=== PATIENT | female | born 1955 | race Caucasian/White ===

== ENCOUNTER 2017-01-13 17:39 | Emergency (ER) | payer BC, OTHER ==
--- NOTE | 2017-01-13 17:54 | Emergency Department Record ---
History of Present Illness - General Chief Complaint: Chest Pain Stated Complaint: CHEST PRESSURE Time Seen by Provider: 01/13/17 17:52 Source: Patient Mode of Arrival: Ambulatory Limitations: No limitations - History of Present Illness Initial Comments: The patient has been having sharp CP with nausea mildly for months and it got a lot worse about 2 hours ago. The pain is like a pressure and is L sided and there is a sharp component that radiates to the back at times. She has had mild PETRONA, sweating and nausea with it. The patient has multiple cardiac risk factors including HTN, obesity, high Cholesterol and an 80 year tobacco use hx. MD Complaint: Chest pain Onset/Timin -: Hour(s) Onset: During rest Pain Location: Left chest, Right chest Pain Radiation: Back Severity: Severe Severity scale (1-10): 9 Quality: Sharp, Other Consistency: Constant Improves With: Nothing Worsens With: Nothing Anginal Symptoms: Diaphoresis, Dyspnea, Nausea - Related Data Home Medications Medication Instructions Recorded Confirmed Last Taken Aspirin [Aspirin EC] 81 mg PO DAILY 11/28/14 01/13/17 2 Days Ago Estrogens, Conjugated [Premarin] 1.25 mg PO DAILY 11/28/14 01/13/17 01/13/17 Lisinopril/Hydrochlorothiazide 1 each PO DAILY 11/28/14 01/13/17 01/13/17 [Zestoretic 20-25 mg Tablet] Pantoprazole Sodium [Protonix] 40 mg PO DAILY 11/28/14 01/13/17 01/13/17 Potassium Chloride [Klor-Con] 10 meq PO DAILY 11/28/14 01/13/17 01/13/17 Zolpidem Tartrate [Zolpidem 12.5 mg PO DAILY 11/28/14 01/13/17 2 Days Ago Tartrate ER] Cyclobenzaprine HCl [Flexeril] 10 mg PO QHS 04/07/15 01/13/17 Unknown Hydrocodone/Acetaminophen [[place] 1 tab PO Q8H PRN 04/07/15 01/13/17 Unknown 10mg/325mg] Methylphenidate HCl 20 mg PO TID 04/07/15 01/13/17 01/13/17 Pravastatin Sodium [Pravachol] 40 mg PO DAILY 04/07/15 01/13/17 01/13/17 Cholecalciferol (Vitamin D3) 5,000 unit PO DAILY tab 02/01/16 01/13/17 01/13/17 [Vitamin D3] [place]-3 Acid Ethyl Esters [Lovaza] 1 gm PO BID cap 02/01/16 01/13/17 01/13/17 Docusate Sodium [Stool Softener] 100 mg PO DAILY 01/13/17 01/13/17 01/13/17 Allergies Allergy/AdvReac Type Severity Reaction Status Date / Time oxycodone terephthalate AdvReac NAUSEA AND Verified 01/13/17 17:48 [From Percodan] VOMITING Travel Screening - Travel/Exposure Within Last 30 Days Have you traveled within the last 30 days?: No Review of Systems Constitutional: Denies: Chills, Fever Eyes: Denies: Eye discharge ENT: Denies: Congestion Respiratory: Denies: Cough Cardiovascular: Reports: Chest pain, Dyspnea on exertion. Denies: Palpitations , Syncope Endocrine: Denies: Fatigue Gastrointestinal: Denies: Diarrhea, Nausea, Vomiting Genitourinary: Denies: Dysuria Musculoskeletal: Denies: Back pain Skin: Denies: Bruising Past Medical History - SOCIAL HISTORY Smoking Status: Current every day smoker Alcohol Use: None Drug Use: None - RESPIRATORY Hx Respiratory Disorders: No Hx Sleep Apnea: Yes Hx of CPAP: Yes - CARDIOVASCULAR Hx Cardio Disorders: Yes Hx Cardiac Cath: Yes (2005) Hx Chest Pain: Yes Hx Hypertension: Yes - NEURO Hx Neuro Disorders: No - GI Hx GI Disorders: Yes Hx Abdominal Pain: Yes Hx Reflux: Yes Hx Irritable Bowel: Yes Hx Nausea/Vomiting: Yes Hx Ulcer: Yes Hx of Polyps: Yes - Hx Genitourinary Disorders: No - ENDOCRINE Hx Endocrine Disorders: No Comment:: Pt states on Thyroid med due to fatigue - MUSCULOSKELETAL Hx Musculoskeletal Disorders: Yes Hx Arthritis: Yes Hx Back Injury: Yes (1992-work injury) - PSYCH Hx Psych Problems: No - HEMATOLOGY/ONCOLOGY Hx Hematology/Oncology Disorders: No Family Medical History Any Significant Family History?: Yes Hx Cancer: Father Hx Heart Disease: Father, Grandparents Physical Exam - General General Appearance: Alert, Oriented x3, Cooperative, No acute distress - Head Head exam: Atraumatic, Normocephalic, Normal inspection - Eye Eye exam: Normal appearance, PERRL - ENT Throat exam: Normal inspection. negative: Tonsillar erythema, Tonsillar exudate - Neck Neck exam: Normal inspection, Full ROM. negative: Tenderness - Respiratory Respiratory exam: Normal lung sounds bilaterally. negative: Respiratory distress - Cardiovascular Cardiovascular Exam: Regular rate, Normal rhythm, Normal heart sounds - GI/Abdominal GI/Abdominal exam: Soft, Normal bowel sounds. negative: Tenderness - Extremities Extremities exam: Normal inspection, Full ROM, Normal capillary refill, Other ( radial pulses are equal bilaterally.). negative: Tenderness - Neurological Neurological exam: Alert, Normal gait. negative: Abnormal gait, Motor sensory deficit Course Vital Signs 01/13/17 17:41 Temperature 97.9 F Pulse Rate 95 H Respiratory 20 Rate Blood Pressure 145/98 Pulse Ox 98 - Reevaluation(s) Reevaluation #1: The patient is doing better at this time. Her L chest pressure has almost resolved and her L scapula pain is improved but still present. There is no PETRONA, sweating or nausea. The patient's BP is much improved at this time and she is very comfortably presently. 01/13/17 18:28 Reevaluation #2: The patient is doing a little better. The 2nd EKG is slightly improved with very subtle ST depression in the inferior leads only. The anterior lateral ST depression that was present on the 1st EKG is now improved. 01/13/17 18:45 Reevaluation #3: The patient is doing better and appears very comfortably. She still has mild chest heaviness but no specific pain and no severe back pain. Her BP and HR are very stable and normal at this time. Due to the way the patient describes the pain and due to her multiple risk factors I strongly believe the patient is having cardiac ischemia. I discussed this with the patient and also the plan for a probably heart catheterization. Due to that the patient stated she would like to go to [facility] on the [facility] service. I then did discuss the case with Dr. Gutiérrez from [facility] and he does accept the patient to the hospital there. 01/13/17 19:07 Reevaluation #4: The patient is doing better at this time. Her chest pressure is improving but she is having significant pain around her L scapula. Her BP's are equal in both arms but she does have a hx of HTN. I did order a D-dimer and if positive may order a chest CT to R/O dissection. I did discuss the case again with Dr. Zhao and he would like a 3rd EKG. He is aware the patient is not pain free but she is very comfortable with a BP of 109/65 and HR of 90. 01/13/17 19:36 01/13/17 19:48 Reevaluation #5: The 3rd EKG is unchanged and does not demonstrate any significant cardiac dz. The patient is very comfortable presently and her pressure in her chest is almost all gone presently. Her back pain is almost gone also and she is smiling and laughing with her family. I did discuss the issues with the Indeterminate D- dimer with Dr. Gutiérrez but at this time strongly doubt an aortic dissection due to the pain being almost all resolved, the BP improved and her BP's equal in both arms. Dr. Maria is aware of the issues and will re-evaluate the patient at [facility] with his bellperson. 01/13/17 19:56 01/13/17 20:05 Medical Decision Making - Data Complexity MDM Data: X-Ray Ordered and/or Reviewed, EKG Ordered and/or Reviewed - Lab Data Result diagrams: 01/13/17 18:05 01/13/17 18:05 - EKG Data -: EKG Interpreted by Me (NSR, subtle ST depression V3-6.) - Radiology Data Radiology results: Report reviewed (CXR: Neg.) Disposition Disposition: Transfer Disposition: Acute Care Hospital Transfer Transfer To: [facility] Reason For Transfer: Unstable Angina Accepting Physician: Brock Time Discussed w/Accepting Physician: 19:10 Condition: (2) Stable Forms: Patient Portal Access Time of Disposition: 19:10
[2017-01-13] MEDS ORDERED: ASPIRIN 325 MG TABLET PO ONE (17:57)
[2017-01-13] MEDS ORDERED: ONDANSETRON HCL IV 4 MG/2 ML VIAL IVP ONE (18:00)
[2017-01-13] MEDS: NITROGLYCERIN 0.4MG SL TABLET #25 BTL SL PRN ×2 (18:08→18:45)
[2017-01-13 18:14] LABS: BASO % 0.8 % (0-6); EOS % 0.9 % (0-6); GRAN % 66.6 % (47-80); HEMATOCRIT 45.4 % (35.0-47.0); HEMOGLOBIN 15.5 gm/dl (11.6-16.0); MEAN CORPUSCULAR HGB CONC 34.1 g/dl (32-36); MEAN PLATELET VOLUME 11.5 fl (7.4-10.4); MONO % 8.7 % (0-9); PLATELET COUNT 306 K/uL (130-400); RED BLOOD COUNT 5.16 M/uL (3.80-5.40); RED CELL DISTRIBUTION WIDTH 14.3 % (11.5-14.5); WHITE BLOOD COUNT W/O DIFF 16.2 K/uL (4.2-12.2)
[2017-01-13] MEDS ORDERED: MORPHINE SULFATE 5 MG/ML PFS IVP ONE ×2 (18:16→18:41)
[2017-01-13 18:30] LABS: BLOOD UREA NITROGEN 16 mg/dL (7-17); CREATINE PHOSPHOKINASE 76 U/L (30-135); CREATININE 0.7 mg/dL (0.52-1.04); EST GLOMERULAR FILTRATION RATE > 60 ml/min; GLUCOSE,RANDOM 108 mg/dL (70-110); INR 1.01; PARTIAL THROMBOPLASTIN TIME 24.3 SECONDS (24.5-39.1); PROTHROMBIN TIME (PATIENT) 11.4 SECONDS (9.5-12.1)
[2017-01-13 18:42] LABS: CKMB 0.7 ug/L (0-6); TROPONIN I < 0.012 ng/mL (0.00-0.034)
[2017-01-13] MEDS ORDERED: HEPARIN SODIUM 1000 UNIT/1 ML 10ML VIAL IVP ONE (18:50)
[2017-01-13] MEDS ORDERED: HEPARIN SODIUM/D5W 25,000 UNITS in DEXTROSE 5 % IN WATER 1 BAG IV SCH ×2 (19:00)
[2017-01-13] MEDS ORDERED: NITROGLYCERIN/D5W 50 MG in DEXTROSE 5 % IN WATER 1 BAG IV SCH ×2 (19:00)
[2017-01-13] MEDS ORDERED: HYDROMORPHONE HCL 1 MG/ML CPJ IVP ONE (19:03)
--- NOTE | 2017-01-15 13:35 | Emergency Department Record ---
History of Present Illness - General Chief Complaint: Chest Pain Stated Complaint: CHEST PRESSURE Time Seen by Provider: 01/13/17 17:52 Source: Patient Mode of Arrival: Ambulatory Limitations: No limitations - History of Present Illness Onset/Timin -: Hour(s) Onset: During rest Pain Location: Left chest, Right chest Pain Radiation: Back Severity: Severe Severity scale (1-10): 9 Quality: Sharp, Other Consistency: Constant Improves With: Nothing Worsens With: Nothing Anginal Symptoms: Diaphoresis, Dyspnea, Nausea - Related Data Home Medications Medication Instructions Recorded Confirmed Last Taken Aspirin [Aspirin EC] 81 mg PO DAILY 11/28/14 01/13/17 2 Days Ago Estrogens, Conjugated [Premarin] 1.25 mg PO DAILY 11/28/14 01/13/17 01/13/17 Lisinopril/Hydrochlorothiazide 1 each PO DAILY 11/28/14 01/13/17 01/13/17 [Zestoretic 20-25 mg Tablet] Pantoprazole Sodium [Protonix] 40 mg PO DAILY 11/28/14 01/13/17 01/13/17 Potassium Chloride [Klor-Con] 10 meq PO DAILY 11/28/14 01/13/17 01/13/17 Zolpidem Tartrate [Zolpidem 12.5 mg PO DAILY 11/28/14 01/13/17 2 Days Ago Tartrate ER] Cyclobenzaprine HCl [Flexeril] 10 mg PO QHS 04/07/15 01/13/17 Unknown Hydrocodone/Acetaminophen [[place] 1 tab PO Q8H PRN 04/07/15 01/13/17 Unknown 10mg/325mg] Methylphenidate HCl 20 mg PO TID 04/07/15 01/13/17 01/13/17 Pravastatin Sodium [Pravachol] 40 mg PO DAILY 04/07/15 01/13/17 01/13/17 Cholecalciferol (Vitamin D3) 5,000 unit PO DAILY tab 02/01/16 01/13/17 01/13/17 [Vitamin D3] [place]-3 Acid Ethyl Esters [Lovaza] 1 gm PO BID cap 02/01/16 01/13/17 01/13/17 Docusate Sodium [Stool Softener] 100 mg PO DAILY 01/13/17 01/13/17 01/13/17 Allergies Allergy/AdvReac Type Severity Reaction Status Date / Time oxycodone terephthalate AdvReac NAUSEA AND Verified 01/13/17 17:48 [From Percodan] VOMITING Travel Screening - Travel/Exposure Within Last 30 Days Have you traveled within the last 30 days?: No Review of Systems Constitutional: Denies: Chills, Fever Eyes: Denies: Eye discharge ENT: Denies: Congestion Respiratory: Denies: Cough Cardiovascular: Reports: Chest pain, Dyspnea on exertion. Denies: Palpitations , Syncope Endocrine: Denies: Fatigue Gastrointestinal: Denies: Diarrhea, Nausea, Vomiting Genitourinary: Denies: Dysuria Musculoskeletal: Denies: Back pain Skin: Denies: Bruising Past Medical History - SOCIAL HISTORY Smoking Status: Current every day smoker Alcohol Use: None Drug Use: None - RESPIRATORY Hx Respiratory Disorders: No Hx Sleep Apnea: Yes Hx of CPAP: Yes - CARDIOVASCULAR Hx Cardio Disorders: Yes Hx Cardiac Cath: Yes (2005) Hx Chest Pain: Yes Hx Hypertension: Yes - NEURO Hx Neuro Disorders: No - GI Hx GI Disorders: Yes Hx Abdominal Pain: Yes Hx Reflux: Yes Hx Irritable Bowel: Yes Hx Nausea/Vomiting: Yes Hx Ulcer: Yes Hx of Polyps: Yes - Hx Genitourinary Disorders: No - ENDOCRINE Hx Endocrine Disorders: No Comment:: Pt states on Thyroid med due to fatigue - MUSCULOSKELETAL Hx Musculoskeletal Disorders: Yes Hx Arthritis: Yes Hx Back Injury: Yes (1992-work injury) - PSYCH Hx Psych Problems: No - HEMATOLOGY/ONCOLOGY Hx Hematology/Oncology Disorders: No Family Medical History Any Significant Family History?: Yes Hx Cancer: Father Hx Heart Disease: Father, Grandparents Physical Exam - General Limitations: No limitations Course Vital Signs 01/13/17 01/13/17 01/13/17 17:41 18:11 18:25 Temperature 97.9 F Pulse Rate 95 H Pulse Rate [ 93 H 97 H Marketing Editor ] Respiratory 20 20 22 Rate Blood Pressure 145/98 Blood Pressure 137/56 116/69 [Left Arm] Blood Pressure [Right Arm] Pulse Ox 98 97 96 01/13/17 01/13/17 01/13/17 18:47 18:48 19:26 Temperature Pulse Rate Pulse Rate [ 99 H 98 H 102 H Marketing Editor ] Respiratory 20 18 Rate Blood Pressure Blood Pressure 149/67 111/70 [Left Arm] Blood Pressure 143/77 143/77 [Right Arm] Pulse Ox 96 97 01/13/17 01/13/17 19:45 20:14 Temperature Pulse Rate Pulse Rate [ 93 H 89 Marketing Editor ] Respiratory 19 17 Rate Blood Pressure Blood Pressure 109/65 123/66 [Left Arm] Blood Pressure [Right Arm] Pulse Ox 97 Medical Decision Making - Lab Data Result diagrams: 01/13/17 18:05 01/13/17 18:05 Lab Results 01/13/17 01/13/17 01/13/17 Range/Units 18:05 18:05 18:05 WBC 16.2 H (4.2-12.2) K/uL RBC 5.16 (3.80-5.40) M/uL Hgb 15.5 (11.6-16.0) gm/dl Hct 45.4 (35.0-47.0) % MCV 88.0 (81-97) fl MCH 30.0 (27-33) pg MCHC 34.1 (32-36) g/dl RDW 14.3 (11.5-14.5) % Plt Count 306 (130-400) K/uL MPV 11.5 H (7.4-10.4) fl Gran % 66.6 (47-80) % Lymphocytes % 23.0 (16-45) % Monocytes % 8.7 (0-9) % Eosinophils % 0.9 (0-6) % Basophils % 0.8 (0-6) % PT 11.4 (9.5-12.1) SECONDS INR 1.01 PTT 24.30 L (24.5-39.1) SECONDS D-Dimer (0-0.59) mg/L FEU Sodium 139 (136-145) mmol/L Potassium 3.8 (3.5-5.1) mmol/L Chloride 96 L (98-107) mmol/L Carbon Dioxide 20.0 L (22-30) mmol/L Anion Gap 23.0 H (7-16) BUN 16 (7-17) mg/dL Creatinine 0.7 (0.52-1.04) mg/dL Estimated GFR > 60 ml/min Random Glucose 108 (70-110) mg/dL Calcium 8.3 L (8.5-10.1) mg/dL Creatine Kinase 76 (30-135) U/L CK-MB (CK-2) 0.7 (0-6) ug/L Troponin I < 0.012 (0.00-0.034) ng/mL 01/13/17 Range/Units 18:05 WBC (4.2-12.2) K/uL RBC (3.80-5.40) M/uL Hgb (11.6-16.0) gm/dl Hct (35.0-47.0) % MCV (81-97) fl MCH (27-33) pg MCHC (32-36) g/dl RDW (11.5-14.5) % Plt Count (130-400) K/uL MPV (7.4-10.4) fl Gran % (47-80) % Lymphocytes % (16-45) % Monocytes % (0-9) % Eosinophils % (0-6) % Basophils % (0-6) % PT (9.5-12.1) SECONDS INR PTT (24.5-39.1) SECONDS D-Dimer 0.54 (0-0.59) mg/L FEU Sodium (136-145) mmol/L Potassium (3.5-5.1) mmol/L Chloride (98-107) mmol/L Carbon Dioxide (22-30) mmol/L Anion Gap (7-16) BUN (7-17) mg/dL Creatinine (0.52-1.04) mg/dL Estimated GFR ml/min Random Glucose (70-110) mg/dL Calcium (8.5-10.1) mg/dL Creatine Kinase (30-135) U/L CK-MB (CK-2) (0-6) ug/L Troponin I (0.00-0.034) ng/mL Disposition Disposition: Transfer Clinical Impression: Unstable Angina Pectoris Disposition: Acute Care Hospital Transfer Transfer To: [facility] Reason For Transfer: Cardiology. Accepting Physician: Pavel. Time Discussed w/Accepting Physician: 13:35 Condition: (2) Stable Forms: Patient Portal Access Time of Disposition: 13:35
--- NOTE | 2017-01-19 13:35 | RADIOLOGY REPORT ---
EXAM: PORTABLE CHEST HISTORY: CHEST PAIN. TECHNIQUE: A single mobile upright view of the chest was obtained. Comparison: Two view chest radiographic examination dated 12/01/16. FINDINGS: The heart is not grossly enlarged and the pulmonary vasculature is nondilated. No confluent air space opacity is seen nor is there costophrenic angle blunting or pneumothorax. A surgical anchor is again noted in the proximal right humerus. There are degenerative changes of the visualized spine and shoulder girdles. IMPRESSION: NO RADIOGRAPHIC EVIDENCE OF ACUTE CARDIOPULMONARY DISEASE WITHOUT SIGNIFICANT CHANGE SINCE 12/01/16. JOB NUMBER: [id number] [facility]
== END 2017-01-13 20:41 | disposition short-term general hospital (02) ==
LOC: ER 17:39
DX: I20.0 Unstable angina (principal); R11.0 Nausea; R06.00 Dyspnea, unspecified; I10 Essential (primary) hypertension; F17.210 Nicotine dependence, cigarettes, uncomplicated
CPT/HCPCS: 99285 ×2; 96365; 96366; 96375; 82550; 85025; 85730; 85610; 82553; 84484; 80048; 85379; 71010; 93005; 93010; J2405; J1170; J2270

== ENCOUNTER 2017-07-15 07:30 | Day surgery (SDC) | payer BC, OTHER ==
[2017-07-15] MEDS ORDERED: HYDROCODONE/APAP 7.5/325MG TABLET PO ONE (13:16)
[2017-07-15] MEDS ORDERED: BUPIVACAINE 0.5% W/EPI MPF 30 ML VIAL IVP ONE (13:18)
[2017-07-15] MEDS ORDERED: LIDOCAINE 1% W/EPI 1:200,000 MPF 30ML SQ ONE (13:18)
[2017-07-15] MEDS ORDERED: DEXAMETHASONE PRESERVATIVE FREE 10MG/ML VIAL IV ONE (13:18)
[2017-07-15] MEDS ORDERED: LIDOCAINE 2% MDV (20MG/ML) 20ML VIAL IV ONE (14:00)
[2017-07-15] MEDS ORDERED: *PACU ONLY* KETAMINE HCL 10 MG/ML (20ML) VIAL IV ONE (14:00)
[2017-07-15] MEDS ORDERED: MIDAZOLAM HCL 2MG/2ML VIAL IV ONE (14:00)
[2017-07-15] MEDS ORDERED: PROPOFOL 10 MG/ML VIAL IV ONE (14:00)
[2017-07-15] MEDS ORDERED: ALFENTANIL HCL 500 MCG/1ML, 2ML AMP IV ONE (14:00)
--- NOTE | 2017-07-15 15:16 | Operative Note - [place] ---
DATE OF SURGERY: 07/15/17 PREOPERATIVE DIAGNOSIS: CERVICAL SPONDYLOSIS WITHOUT MYELOPATHY, ICD-10 CODE = M47.812. OPERATION: RADIOFREQUENCY RHIZOTOMY LEFT CERVICAL FACETS 3-4, 4-5, 5-6, AND 6-7. SURGEON: GUERRERO VELAZQUEZ D.O. ANESTHESIA: LOCAL SEDATION. ANESTHESIA PROVIDER: CHRISTINA SANTOS CRNA. INDICATION: This patient presents with primary neck pain. Examination shows diffuse tenderness in the cervical spine. Range of motion does cause pain to the neck with extension, all left. Diagnostics show multiple levels of spondylosis. A facet series resulted in 75-90% pain control. Due to the failure of therapy and the success of facets, she presents for rhizotomy for more long- term relief. PROCEDURE: Intravenous line, vital sign monitoring, IV sedation, prepped, draped, sterile technique. Consistent with the diagnostic facet series, facets at 3-4, 4-5, 5-6, and 6-7 on the left were marked, infiltrated, and a 20-gauge rhizotomy cannula positioned. Stimulation trials conducted. Rhizotomy burn performed. Local with anti-inflammatory into the sites. Topical antibiotics. Sterile dressing applied. We will monitor and evaluate. cc: Dr. Rader JOB NUMBER: [id number] [facility]TDD
== END 2017-07-15 10:15 | disposition home or self-care (01) ==
LOC: SUR 07:30
PROVIDERS: ATTEND Pain Medicine Interventional Pain Medicine
DX: M47.812 Spondylosis without myelopathy or radiculopathy, cervical region (principal); E78.00 Pure hypercholesterolemia, unspecified; I10 Essential (primary) hypertension
CPT/HCPCS: 64633; 64634 ×3; 01936; J1100

== ENCOUNTER 2018-09-08 07:08 | Day surgery (SDC) | payer OTHER, BC ==
[2018-09-08] MEDS ORDERED: FENTANYL PF 100MCG/2ML VIAL IV ONE (07:09)
[2018-09-08] MEDS ORDERED: PROPOFOL 10 MG/ML VIAL IV ONE (07:09)
[2018-09-08] MEDS ORDERED: DEXAMETHASONE PRESERVATIVE FREE 10MG/ML VIAL IV ONE (07:09)
[2018-09-08] MEDS ORDERED: BUPIVACAINE 0.5% W/EPI MPF 30 ML VIAL IVP ONE (07:09)
[2018-09-08] MEDS ORDERED: LIDOCAINE 1% W/EPI 1:200,000 MPF 30ML SQ ONE (07:09)
[2018-09-08] MEDS ORDERED: LIDOCAINE 2% MDV (20MG/ML) 20ML VIAL IV ONE (07:09)
[2018-09-08] MEDS ORDERED: MIDAZOLAM HCL 2MG/2ML VIAL IV ONE (07:09)
--- NOTE | 2018-09-08 16:27 | Operative Note ---
DATE OF SURGERY: 09/08/18 PREOPERATIVE DIAGNOSIS: CERVICAL SPONDYLOSIS WITHOUT MYELOPATHY, ICD-10 CODE = M47.812, LEFT. OPERATION: RADIOFREQUENCY RHIZOTOMY LEFT CERVICAL FACETS 3-4, 4-5, 5-6, AND 6-7. SURGEON: GUERRERO VELAZQUEZ D.O. ANESTHESIA: LOCAL SEDATION. ANESTHESIA PROVIDER: Zoila INDICATION: This patient presents with left-sided neck and shoulder pain. Diagnostics show extensive multiple levels of spondylosis. A facet series 75% plus percent pain control. Due to the failure of therapy and success of facet series, the patient presents for rhizotomy for more long-term relief. PROCEDURE: Intravenous line, vital sign monitoring, IV sedation, prepped, draped, sterile technique. Under imaging, cervical facets left at 3-4, 4-5, 5-6 , and 6-7 marked and infiltrated. A 22-gauge rhizotomy cannula positioned. Stimulation trials conducted. Rhizotomy burn performed. Local with anti- inflammatory into the sites. Topical antibiotics. Sterile dressing applied. We will monitor and evaluate. cc: Dr. Avalos JOB NUMBER: [id number] MTDD
== END 2018-09-08 10:00 | disposition home or self-care (01) ==
LOC: SUR 07:08
PROVIDERS: ATTEND Pain Medicine Interventional Pain Medicine
DX: M47.812 Spondylosis without myelopathy or radiculopathy, cervical region (principal); I10 Essential (primary) hypertension; E78.00 Pure hypercholesterolemia, unspecified

== ENCOUNTER 2018-10-31 13:46 | Emergency (ER) | payer OTHER, BC ==
--- NOTE | 2018-10-31 14:02 | Emergency Department Record ---
History of Present Illness - General Chief Complaint: Back Pain/Injury Stated Complaint: BACK PAIN Time Seen by Provider: 10/31/18 13:59 Source: Patient, Family Mode of Arrival: Ambulatory Limitations: No limitations - History of Present Illness Initial Comments: 63 yo female presents with right sided back discomfort. The onset was Thursday. She does not recall a specific injury. No rash. No fever. No dysuria. No radiation to the leg or abdomen. No weakness. No nausea, vomiting, or diarrhea. She has pain with movement and certain positions. She has a history of back surgery in the past. She had a cervical rhizotomy in August. She had an injury in the . Dr Hand is her pain specialist. It hurts to change positions, twist, bend. No recent illness. MD Complaint: Back pain Onset/Timin -: Days(s) Similar Symptoms Previously: Yes Place: Home Radiation: None Severity: Moderate Quality: Aching Improves With: None Worsens With: Movement Context: Unknown, Turning/twisting Associated Symptoms: Denies other symptoms - Related Data Previous Rx's Medication Instructions Recorded Cyclobenzaprine HCl [Flexeril] 10 mg PO TID #15 tablet 10/31/18 Allergies Allergy/AdvReac Type Severity Reaction Status Date / Time oxycodone terephthalate AdvReac NAUSEA AND Verified 10/31/18 14:33 [From Percodan] VOMITING Travel Screening - Travel/Exposure Within Last 30 Days Have you traveled within the last 30 days?: No Review of Systems Constitutional: Denies: Chills, Fever, Malaise, Weakness Eyes: Denies: Eye discharge ENT: Denies: Congestion, Throat pain Respiratory: Denies: Cough Cardiovascular: Denies: Edema Endocrine: Denies: Fatigue Gastrointestinal: Denies: Abdominal pain, Diarrhea, Nausea, Vomiting Genitourinary: Denies: Dysuria, Hematuria Musculoskeletal: Reports: As per HPI, Back pain Skin: Denies: Bruising, Change in color, Rash Neurological: Denies: Numbness, Tingling, Weakness Psychiatric: Denies: Anxiety Hematological/Lymphatic: Denies: Easy bleeding, Easy bruising, Swollen glands Past Medical History - SOCIAL HISTORY Smoking Status: Current every day smoker - RESPIRATORY Hx Respiratory Disorders: Yes Hx Sleep Apnea: Yes Hx of CPAP: Yes - CARDIOVASCULAR Hx Cardio Disorders: Yes Hx Cardiac Cath: Yes (2005 and 2016) Hx Chest Pain: (none recent heart cath 3-17) Hx Hypertension: Yes (on meds good control) - NEURO Hx Neuro Disorders: Yes Hx Headaches: Yes - GI Hx GI Disorders: Yes Hx Reflux: Yes Hx Irritable Bowel: Yes Hx Ulcer: Yes Hx of Polyps: Yes - Hx Genitourinary Disorders: No - ENDOCRINE Hx Endocrine Disorders: No Comment:: Pt states on Thyroid med due to fatigue - MUSCULOSKELETAL Hx Musculoskeletal Disorders: Yes Hx Arthritis: Yes Hx Back Injury: Yes (1992-work injury) - PSYCH Hx Psych Problems: No - HEMATOLOGY/ONCOLOGY Hx Hematology/Oncology Disorders: No Family Medical History Hx Cancer: Father Hx Heart Disease: Father, Grandparents Physical Exam - General General Appearance: Alert, Oriented x3, Cooperative, No acute distress Limitations: No limitations - Head Head exam: Atraumatic, Normal inspection - Eye Eye exam: Normal appearance. negative: Conjunctival injection - ENT ENT exam: Normal exam, Mucous membranes moist Ear exam: Normal external inspection Nasal Exam: Normal inspection Mouth exam: Normal external inspection - Neck Neck exam: Normal inspection - Respiratory Respiratory exam: Normal lung sounds bilaterally. negative: Respiratory distress - Cardiovascular Cardiovascular Exam: Regular rate, Normal rhythm, Normal heart sounds - GI/Abdominal GI/Abdominal exam: Soft. negative: Distended, Guarding, Pulsatile mass, Tenderness - Rectal Rectal exam: Deferred - exam: Deferred - Extremities Extremities exam: Normal inspection, Normal capillary refill. negative: Joint swelling, Pedal edema, Tenderness - Back Back exam: Reports: Normal inspection, Muscle spasm, Paraspinal tenderness. Denies: Rash noted Image of Body Front/Back: 1 - paraspinal tenderness, no rash, no swelling, reproduces with movement - Neurological Neurological exam: Alert, Oriented X3. negative: Motor sensory deficit - Psychiatric Psychiatric exam: Normal affect, Normal mood. negative: Agitated, Anxious - Skin Skin exam: Dry, Intact, Normal color, Warm Type of lesion: negative: Rash Course Vital Signs 10/31/18 13:54 Temperature 98.1 F Pulse Rate 89 Respiratory 20 Rate Blood Pressure 113/72 Pulse Ox 99 - Reevaluation(s) Reevaluation #1: 10/31/18 13:59 The vitals were reviewed. No acute changes. 10/31/18 15:33 The patient is doing much better She is ready for DC Her movement is significantly improved and tolerable Disposition Disposition: Discharge Clinical Impression: Back pain Disposition: Home, Self-Care Condition: (1) Good Instructions: Low Back Strain (ED) Additional Instructions: Call your doctor for the next available follow up appointment Return to the ER for a recheck if worse, any new concerns or questions Take the prescriptions provided as directed Review this ER visit and the tests performed with your family doctor Prescriptions: Cyclobenzaprine HCl [Flexeril] 10 mg PO TID #15 tablet Forms: Patient Portal Access Time of Disposition: 15:33 Quality - Quality Measures Quality Measures: N/A - Blood Pressure Screening Does Patient Have Any of the Following: Active Dx of HTN Blood Pressure Classification: Normal BP Reading Systolic Measurement: 113 Diastolic Measurement: 72 Screening for High Blood Pressure: Patient Exclusion, Hx of HTN [[id number]]
[2018-10-31] MEDS ORDERED: ORPHENADRINE CITRATE 60MG/2ML VIAL IM ONE (14:22)
[2018-10-31] MEDS ORDERED: METHYLPREDNISOLONE 80MG/VIAL IM ONE (14:22)
[2018-10-31] MEDS ORDERED: KETOROLAC 30 MG/ML VIAL IM ONE (14:23)
== END 2018-10-31 15:49 | disposition home or self-care (01) ==
LOC: ER 13:46
DX: M54.5 Low back pain (principal); I10 Essential (primary) hypertension; F17.210 Nicotine dependence, cigarettes, uncomplicated
CPT/HCPCS: 99283 ×2; 96372; J1885; J1040; J2360

== ENCOUNTER 2018-11-01 17:10 | Emergency (ER) | payer OTHER, BC ==
--- NOTE | 2018-11-01 17:34 | Emergency Department Record ---
History of Present Illness - General Chief Complaint: Back Pain/Injury Stated Complaint: BACK PAIN Time Seen by Provider: 11/01/18 17:11 Source: Patient Mode of Arrival: Ambulatory Limitations: No limitations - History of Present Illness Initial Comments: The patient is here due to R mid back pain for 4 days. The onset was gradual and the pain is a sharp stabbing pain in the R mid lower thoracic area. The pain is worse with any bending, twisting, or lying flat. There is no radiation down the legs and no leg numbness, weakness, or bowel or bladder issues. The patient was in the ER yesterday for the same thing and did receive pain medicines with improvement. Today the pain is back so she has returned. MD Complaint: Back pain Onset/Timin -: Days(s) Similar Symptoms Previously: Yes Place: Home Radiation: None Severity: Moderate Severity scale (1-10): 9 Quality: Sharp Consistency: Constant Improves With: None Worsens With: None Context: Unknown Associated Symptoms: Shortness of breath Treatments Prior to Arrival: Prescription analgesics Treatment Prior to Arrival Comment:: norco/ibuprofen @4pm - Related Data Previous Rx's Medication Instructions Recorded Cyclobenzaprine HCl [Flexeril] 10 mg PO TID #15 tablet 10/31/18 Lidocaine Patch [Lidoderm] 1 ea TOP DAILY #7 patch 11/01/18 Allergies Allergy/AdvReac Type Severity Reaction Status Date / Time oxycodone terephthalate AdvReac NAUSEA AND Verified 10/31/18 14:33 [From Percodan] VOMITING Travel Screening - Travel/Exposure Within Last 30 Days Have you traveled within the last 30 days?: No Review of Systems Constitutional: Denies: Chills, Fever Eyes: Denies: Eye discharge ENT: Denies: Congestion Respiratory: Denies: Cough, Dyspnea Past Medical History - SOCIAL HISTORY Smoking Status: Current every day smoker - RESPIRATORY Hx Respiratory Disorders: Yes Hx Sleep Apnea: Yes Hx of CPAP: Yes - CARDIOVASCULAR Hx Cardio Disorders: Yes Hx Cardiac Cath: Yes (2005 and 2016) Hx Chest Pain: (none recent heart cath 3-17) Hx Hypertension: Yes (on meds good control) - NEURO Hx Neuro Disorders: Yes Hx Headaches: Yes - GI Hx GI Disorders: Yes Hx Reflux: Yes Hx Irritable Bowel: Yes Hx Ulcer: Yes Hx of Polyps: Yes - Hx Genitourinary Disorders: No - ENDOCRINE Hx Endocrine Disorders: No Comment:: Pt states on Thyroid med due to fatigue - MUSCULOSKELETAL Hx Musculoskeletal Disorders: Yes Hx Arthritis: Yes Hx Back Injury: Yes (1993-work injury) - PSYCH Hx Psych Problems: No - HEMATOLOGY/ONCOLOGY Hx Hematology/Oncology Disorders: No Family Medical History Any Significant Family History?: Yes Hx Cancer: Father Hx Heart Disease: Father, Grandparents Physical Exam - General General Appearance: Alert, Oriented x3, Cooperative, No acute distress - Head Head exam: Atraumatic, Normocephalic, Normal inspection - Eye Eye exam: Normal appearance, PERRL, EOMI - ENT Throat exam: Normal inspection. negative: Tonsillar erythema, Tonsillar exudate - Neck Neck exam: Normal inspection, Full ROM. negative: Tenderness - Respiratory Respiratory exam: Normal lung sounds bilaterally. negative: Respiratory distress - Cardiovascular Cardiovascular Exam: Regular rate, Normal rhythm, Normal heart sounds - GI/Abdominal GI/Abdominal exam: Soft, Normal bowel sounds. negative: Tenderness - Extremities Extremities exam: Normal inspection, Full ROM, Normal capillary refill. negative: Tenderness - Back Back exam: Reports: Normal inspection, Paraspinal tenderness (The pain is 100% reproducible to palpation over the R lower thoracic paraspinal area.), Other ( Neg SLR bilaterally.). Denies: Vertebral tenderness Image of Body Front/Back: 1 - Area of pain and reprodubible tenderness. - Neurological Neurological exam: Alert, Normal gait, Oriented X3, Reflexes normal. negative: Abnormal gait, Altered, Motor sensory deficit - Skin Skin exam: negative: Rash Course Vital Signs 11/01/18 17:13 Temperature 98.4 F Pulse Rate 91 H Respiratory 20 Rate Blood Pressure 157/79 Pulse Ox 99 - Reevaluation(s) Reevaluation #1: The patient is doing a lot better at this time. Her pain is much improved and she is ambulating normally and ready for home. 11/01/18 18:26 Medical Decision Making - Lab Data Result diagrams: 11/01/18 17:35 11/01/18 17:35 Disposition Disposition: Discharge Clinical Impression: Back pain Qualifiers: Back pain location: back pain in unspecified location Chronicity: chronic Back pain laterality: right Qualified Code(s): M54.9 - Dorsalgia, unspecified Disposition: Home, Self-Care Condition: (2) Stable Instructions: Low Back Strain (ED) Additional Instructions: Please continue your regular home pain medicines and add the Lidoderm as directed. Please see your family doctor later this week for recheck. Return to the ER for any worsening symptoms, leg weakness or numbness, or any bowel or bladder issues. Prescriptions: Lidocaine Patch [Lidoderm] 1 ea TOP DAILY #7 patch Forms: Patient Portal Access Time of Disposition: 18:28 Quality - Quality Measures Quality Measures: N/A - Blood Pressure Screening View Details: Yes Does Patient Have Any of the Following: No Blood Pressure Classification: Pre-Hypertensive BP Reading Systolic Measurement: 125 Diastolic Measurement: 75 Screening for High Blood Pressure: < Pre-Hypertensive BP, F/U Documented > [ G8950] Pre-Hypertensive Follow-up Interventions: Referral to alternative/primary care provider.
[2018-11-01 17:39] LABS: BASO % 0.6 % (0-6); GRAN % 75.2 % (47-80); HEMATOCRIT 41.3 % (35.0-47.0); HEMOGLOBIN 14.1 gm/dl (11.6-16.0); LYMPH % 14.2 % (16-45); MEAN CORPUSCULAR HEMOGLOBIN 31.1 pg (27-33); MEAN CORPUSCULAR HGB CONC 34.1 g/dl (32-36); MEAN PLATELET VOLUME 11.5 fl (7.4-10.4); PLATELET COUNT 196 K/uL (130-400); RED BLOOD COUNT 4.54 M/uL (3.80-5.40); RED CELL DISTRIBUTION WIDTH 13.6 % (11.5-14.5); WHITE BLOOD COUNT W/O DIFF 14.7 K/uL (4.2-12.2)
[2018-11-01 17:49] LABS: BLOOD UREA NITROGEN 9 mg/dL (8-23); CREATININE 0.6 mg/dL (0.5-0.9); EST GLOMERULAR FILTRATION RATE > 60 mL/min
[2018-11-01 17:50] LABS: URINE APPEARANCE CLEAR; URINE BILIRUBIN NEGATIVE (NEGATIVE); URINE BLOOD TRACE-I (NEGATIVE); URINE COLOR YELLOW; URINE GLUCOSE (UA) NEGATIVE (NEGATIVE); URINE KETONE NEGATIVE (NEGATIVE); URINE LEUKOCYTE ESTERASE NEGATIVE (NEGATIVE); URINE NITRITE NEGATIVE (NEGATIVE); URINE UROBILINOGEN 0.2 E.U./dL (0.20 - 1.00)
[2018-11-01 17:52] LABS: GLUCOSE,RANDOM 208 mg/dL (74-109)
[2018-11-01] MEDS ORDERED: ORPHENADRINE CITRATE 60MG/2ML VIAL IM ONE (17:52)
[2018-11-01] MEDS ORDERED: KETOROLAC 30 MG/ML VIAL IM ONE (17:52)
[2018-11-01] MEDS ORDERED: LIDOCAINE 5% PATCH TOP ONE (17:54)
[2018-11-01 17:58] LABS: URINE BACTERIA 1+; URINE EPITHELIAL CELLS 36 - 50 (FEW); URINE MUCUS LIGHT; URINE RBC 0 - 2 (NONE SEEN); URINE WBC NONE SEEN (0-2/hpf)
== END 2018-11-01 18:34 | disposition home or self-care (01) ==
LOC: ER 17:10
DX: M54.6 Pain in thoracic spine (principal); R06.02 Shortness of breath; I10 Essential (primary) hypertension; F17.210 Nicotine dependence, cigarettes, uncomplicated
CPT/HCPCS: 99283; 96372; 99284; 85025; 80048; 81001; J1885; J2360

== ENCOUNTER 2019-08-28 07:00 | Emergency (ER) | payer OTHER, BC ==
[2019-08-28] MEDS ORDERED: KETOROLAC 30 MG/ML VIAL IVP ONE (07:18)
[2019-08-28] MEDS ORDERED: ACETAMINOPHEN 1,000 MG/100 ML BTL IVPB ONE (07:19)
--- NOTE | 2019-08-28 07:23 | Emergency Department Record ---
History of Present Illness - General Chief Complaint: Neck Injury/Pain Stated Complaint: SHOULDER NERVE PAIN Time Seen by Provider: 08/28/19 07:05 Source: Patient Mode of Arrival: Ambulatory Limitations: No limitations - History of Present Illness Initial Comments: The patient is here due to R posterior neck pain for 3 days. The pain is over the R trapezius muscle and is non-radiating. The patient denies any injury or trauma but states it began after waking 3 days ago and is not improving with her home pain medicines. She states the pain is much worse with any head rotation or twisting. There is no pain radiating down the R arm and no arm or leg numbness or weakness or any bowel or bladder incontinence. The patient has had similar issues in the past but not quite as bad as this. She also has had similar problems on the L side of the neck which was treated successfully by facet injections by Dr. Hand. Onset/Timin -: Days(s) Place: Home Severity scale (1-10): 9 Quality: Aching, Dull Treatments Prior to Arrival: Prescription pain med - Related Data Previous Rx's Medication Instructions Recorded Cyclobenzaprine HCl [Flexeril] 10 mg PO TID #15 tablet 10/31/18 Allergies Allergy/AdvReac Type Severity Reaction Status Date / Time oxycodone terephthalate AdvReac NAUSEA AND Verified 08/28/19 07:11 [From Percodan] VOMITING Travel Screening - Travel/Exposure Within Last 30 Days Have you traveled within the last 30 days?: No - Travel/Exposure Within Last Year Have you traveled outside the [place] in the last year?: No - Additonal Travel Details Have you been exposed to anyone with a communicable illness?: No - Travel Symptoms Symptom Screening: None Review of Systems Constitutional: Denies: Chills, Fever Eyes: Denies: Eye discharge ENT: Denies: Congestion Respiratory: Denies: Cough, Dyspnea Past Medical History - SOCIAL HISTORY Smoking Status: Current every day smoker Alcohol Use: None Drug Use: None - RESPIRATORY Hx Respiratory Disorders: Yes Hx Sleep Apnea: Yes Hx of CPAP: Yes - CARDIOVASCULAR Hx Cardio Disorders: Yes Hx Cardiac Cath: Yes (2005 and 2016) Hx Chest Pain: (none recent heart cath 3-17) Hx Hypertension: Yes (on meds good control) - NEURO Hx Neuro Disorders: Yes Hx Headaches: Yes - GI Hx GI Disorders: Yes Hx Reflux: Yes Hx Irritable Bowel: Yes Hx Ulcer: Yes Hx of Polyps: Yes - Hx Genitourinary Disorders: No - ENDOCRINE Hx Endocrine Disorders: No Comment:: Pt states on Thyroid med due to fatigue - MUSCULOSKELETAL Hx Musculoskeletal Disorders: Yes Hx Arthritis: Yes Hx Back Injury: Yes (1992-work injury) Comment:: previous neck injections - PSYCH Hx Psych Problems: No - HEMATOLOGY/ONCOLOGY Hx Hematology/Oncology Disorders: No Family Medical History Any Significant Family History?: Yes Hx Cancer: Father Hx Heart Disease: Father, Grandparents Physical Exam - General General Appearance: Alert, Oriented x3, Cooperative, No acute distress - Head Head exam: Atraumatic, Normocephalic, Normal inspection Image of Face/Head: 1 - Area of pain and reproducible tenderness. - Eye Eye exam: Normal appearance, PERRL - ENT Throat exam: Normal inspection. negative: Tonsillar erythema, Tonsillar exudate - Neck Neck exam: Normal inspection, Full ROM, Tenderness (The patient is 100% reproducible with palpation over the R mid trapezius muscle.). negative: Lymphadenopathy, Meningismus, Thyromegaly - Respiratory Respiratory exam: Normal lung sounds bilaterally. negative: Respiratory distr ess - Cardiovascular Cardiovascular Exam: Regular rate, Normal rhythm, Normal heart sounds - Extremities Extremities exam: Normal inspection, Full ROM, Normal capillary refill. negative: Tenderness - Neurological Neurological exam: Alert, Normal gait, Oriented X3, Reflexes normal. negative: Abnormal gait, Altered, Motor sensory deficit - Psychiatric Psychiatric exam: negative: Anxious - Skin Skin exam: negative: Rash Course Vital Signs 08/28/19 07:06 Temperature 97.2 F L Pulse Rate 82 Respiratory 16 Rate Blood Pressure 150/79 Pulse Ox 100 - Reevaluation(s) Reevaluation #1: The patient is doing a lot better at this time. Her pain is much improved and she is ready for home. She is to call Dr. Hand for further treatment. 08/28/19 08:18 Medical Decision Making - Lab Data Result diagrams: 08/28/19 07:25 08/28/19 07:25 Disposition Disposition: Discharge Clinical Impression: Trapezius muscle spasm Disposition: Home, Self-Care Condition: (2) Stable Instructions: Cervical Sprain (ED) Additional Instructions: Please continue your regular home pain medicines and please call Dr. Hand tomorrow for further treatment. Forms: Patient Portal Access Time of Disposition: 08:17 Quality - Quality Measures Quality Measures: N/A - Blood Pressure Screening View Details: Yes Does Patient Have Any of the Following: Active Dx of HTN Blood Pressure Classification: Hypertensive Reading Systolic Measurement: 150 Diastolic Measurement: 79 Screening for High Blood Pressure: Patient Exclusion, Hx of HTN [G9744]
[2019-08-28 07:34] LABS: ABSOLUTE NEUTROPHIL COUNT 4.78; BASO % 0.9 % (0-6); EOS % 4.9 % (0-6); GRAN % 58.3 % (47-80); HEMATOCRIT 41.5 % (35.0-47.0); HEMOGLOBIN 13.6 gm/dl (11.6-16.0); LYMPH % 23.9 % (16-45); MEAN CELL VOLUME 91.8 fl (81-97); MEAN CORPUSCULAR HEMOGLOBIN 30.1 pg (27-33); MEAN CORPUSCULAR HGB CONC 32.8 g/dl (32-36); MEAN PLATELET VOLUME 11.3 fl (7.4-10.4); PLATELET COUNT 195 K/uL (130-400); RED BLOOD COUNT 4.52 M/uL (3.80-5.40); RED CELL DISTRIBUTION WIDTH 13.9 % (11.5-14.5); WHITE BLOOD COUNT W/O DIFF 8.2 K/uL (4.2-12.2)
[2019-08-28 07:45] LABS: BLOOD UREA NITROGEN 15 mg/dL (8-23); CREATININE 0.6 mg/dL (0.5-0.9); EST GLOMERULAR FILTRATION RATE > 60 mL/min
[2019-08-28 07:48] LABS: GLUCOSE,RANDOM 181 mg/dL (74-109)
[2019-08-28] MEDS ORDERED: HYDROMORPHONE HCL 2 MG/ML VIAL IVP ONE (07:55)
== END 2019-08-28 08:27 | disposition home or self-care (01) ==
LOC: ER 07:00
DX: M62.838 Other muscle spasm (principal); M54.2 Cervicalgia; I10 Essential (primary) hypertension; F17.210 Nicotine dependence, cigarettes, uncomplicated
CPT/HCPCS: 99284 ×2; 96365; 96375; 85025; 80048; J1885; J1170

== ENCOUNTER 2019-08-29 05:14 | Emergency (ER) | payer OTHER, BC ==
[2019-08-29] MEDS ORDERED: METHYLPREDNISOLONE PF 125MG/VIAL IM ONE (05:26)
[2019-08-29] MEDS ORDERED: HYDROMORPHONE HCL 2 MG/ML VIAL IM ONE (05:26)
--- NOTE | 2019-08-29 05:32 | Emergency Department Record ---
History of Present Illness - General Chief complaint: Pain Stated complaint: RIGHT SHOULDER PAIN Time Seen by Provider: 08/29/19 05:15 Source: Patient Mode of Arrival: Ambulatory Limitations: No limitations - History of Present Illness Initial comments: 64 yo female returns to ED for pain symptoms to the right shoulder for 3-4 days. Patient reports a history similar symptoms resolved following rhizotomies performed by Dr. Hand. Patient reports taking Lud[place] and Flexeril at home that are not improving her symptoms. Patient was seen in ED yesterday, reports that she received "Dilaudid" that improved her pain symptoms. Patient was instructed to call Dr. Hand for follow-up later this morning. Patient denies injury to the right posterior shoulder, denies numbness, tingling, or extremity weakness on examination. MD Complaint: Neck Pain Onset/Timin -: Days(s) Location: Right, Shoulder History of Same: Yes Severity scale (1-10): 9 Quality: Aching, Sharp Consistency: Constant Improves with: Nothing Worsens with: Nothing Associated Symptoms: Denies other symptoms - Related Data Home Medications Medication Instructions Recorded Confirmed Last Taken Dextroamphetamine/Amphetamine 1 tab PO BID 08/29/19 08/29/19 Unknown [Adderall Xr 30 mg Capsule] Melatonin 3 mg PO DAILY 08/29/19 08/29/19 Unknown Coleman-3 Acid Ethyl Esters [Lovaza] 1 gm PO BID 08/29/19 08/29/19 Unknown Polyethylene Glycol 3350 [Miralax] 1 packet PO DAILY 08/29/19 08/29/19 Unknown Previous Rx's Medication Instructions Recorded Cyclobenzaprine HCl [Flexeril] 10 mg PO TID #15 tablet 10/31/18 Allergies Allergy/AdvReac Type Severity Reaction Status Date / Time oxycodone terephthalate AdvReac NAUSEA AND Verified 08/28/19 07:11 [From Percodan] VOMITING Travel Screening - Travel/Exposure Within Last 30 Days Have you traveled within the last 30 days?: No - Travel/Exposure Within Last Year Have you traveled outside the [place] in the last year?: No - Additonal Travel Details Have you been exposed to anyone with a communicable illness?: No - Travel Symptoms Symptom Screening: None Review of Systems Constitutional: Denies: Chills, Fever, Malaise, Night sweats Eyes: Denies: Eye discharge, Eye pain ENT: Denies: Congestion, Ear pain, Epistaxis Respiratory: Denies: Cough, Dyspnea Cardiovascular: Denies: Chest pain, Dyspnea on exertion Endocrine: Denies: Fatigue, Heat or cold intolerance Gastrointestinal: Denies: Abdominal pain, Nausea, Vomiting Genitourinary: Denies: Incontinence, Retention Musculoskeletal: Reports: Myalgia. Denies: Arthralgia, Back pain, Gout, Joint swelling Skin: Denies: Bruising, Change in color Neurological: Denies: Abnormal gait, Confusion Psychiatric: Denies: Anxiety Hematological/Lymphatic: Denies: Anemia, Blood Clots Past Medical History - SOCIAL HISTORY Smoking Status: Current every day smoker Alcohol Use: None Drug Use: None - RESPIRATORY Hx Respiratory Disorders: Yes Hx Sleep Apnea: Yes Hx of CPAP: Yes - CARDIOVASCULAR Hx Cardio Disorders: Yes Hx Cardiac Cath: Yes (2005 and 2016) Hx Chest Pain: (none recent heart cath -17) Hx Hypertension: Yes (on meds good control) - NEURO Hx Neuro Disorders: Yes Hx Headaches: Yes - GI Hx GI Disorders: Yes Hx Reflux: Yes Hx Irritable Bowel: Yes Hx Ulcer: Yes Hx of Polyps: Yes - Hx Genitourinary Disorders: No - ENDOCRINE Hx Endocrine Disorders: No Comment:: Pt states on Thyroid med due to fatigue - MUSCULOSKELETAL Hx Musculoskeletal Disorders: Yes Hx Arthritis: Yes Hx Back Injury: Yes (1992-work injury) Comment:: previous neck injections - PSYCH Hx Psych Problems: No - HEMATOLOGY/ONCOLOGY Hx Hematology/Oncology Disorders: No Family Medical History Any Significant Family History?: Yes Hx Cancer: Father Hx Heart Disease: Father, Grandparents Physical Exam - General General Appearance: Alert, Oriented x3, Cooperative, Mild distress, Other (Patient appears comfortable on examination) Limitations: No limitations - Head Head exam: Atraumatic, Normocephalic, Normal inspection Head exam detail: negative: Abrasion, Contusion, Fall's sign, General tenderness, Hematoma, Laceration - Eye Eye exam: Normal appearance. negative: Conjunctival injection, Periorbital swelling, Periorbital tenderness, Scleral icterus - ENT Ear exam: negative: Auricular hematoma, Auricular trauma Nasal Exam: negative: Active bleeding, Discharge, Dried blood, Foreign body Mouth exam: negative: Drooling, Laceration, Muffled voice, Tongue elevation - Neck Neck exam: Tenderness, Other (TTP over the right trapezius muscle on examination extending to the right paracervical muscles). negative: Meningismus - Respiratory Respiratory exam: Normal lung sounds bilaterally. negative: Rales, Respiratory distress, Rhonchi, Stridor - Cardiovascular Cardiovascular Exam: Regular rate, Normal rhythm, Normal heart sounds - GI/Abdominal GI/Abdominal exam: Soft. negative: Rebound, Rigid, Tenderness - Rectal Rectal exam: Deferred - exam: Deferred - Extremities Extremities exam: Normal inspection. negative: Pedal edema, Tenderness - Back Back exam: Denies: CVA tenderness (R), CVA tenderness (L) - Neurological Neurological exam: Alert, Normal gait, Oriented X3 - Psychiatric Psychiatric exam: Normal affect, Normal mood - Skin Skin exam: Normal color. negative: Abrasion Type of lesion: negative: abrasion Course Vital Signs 08/29/19 05:17 Temperature 97.4 F L Pulse Rate 80 Respiratory 18 Rate Blood Pressure 158/78 Pulse Ox 99 - Reevaluation(s) Reevaluation #1: 08/29/19 05:57 Patient was reassessed, reports significant improvement in her pain symptoms. Patient appears stable for discharge at this time. Disposition Disposition: Discharge Clinical Impression: Right shoulder pain Qualifiers: Chronicity: acute Qualified Code(s): M25.511 - Pain in right shoulder Disposition: Home, Self-Care Condition: (2) Stable Instructions: Cervical Radiculopathy (ED) Additional Instructions: Return to ED if your symptoms worsen or if you have any concerns. Prednisone as directed. Follow-up with your family doctor in 3-5 days as directed. Forms: Patient Portal Access Time of Disposition: 05:59 Quality - Quality Measures Quality Measures: N/A - Blood Pressure Screening Does Patient Have Any of the Following: No Blood Pressure Classification: Hypertensive Reading Systolic Measurement: 158 Diastolic Measurement: 78 Screening for High Blood Pressure: < First Hypertensive BP, F/U Documented > [G8950] First Hypertensive Follow-up Interventions: Referral to alternative/primary care provider.
== END 2019-08-29 06:05 | disposition home or self-care (01) ==
LOC: ER 05:14
DX: M25.511 Pain in right shoulder (principal); M54.2 Cervicalgia; I10 Essential (primary) hypertension; F17.210 Nicotine dependence, cigarettes, uncomplicated
CPT/HCPCS: 99284 ×2; 96372; J1170; J2930

== ENCOUNTER 2019-08-31 20:29 | Emergency (ER) | payer OTHER, BC ==
[2019-08-31] MEDS ORDERED: HYDROMORPHONE HCL 2 MG/ML VIAL IM ONE (20:48)
--- NOTE | 2019-08-31 20:57 | Emergency Department Record ---
History of Present Illness - General Chief Complaint: Neck Injury/Pain Stated Complaint: PINCHED NERVE Time Seen by Provider: 08/31/19 20:31 Source: Patient Mode of Arrival: Ambulatory Limitations: No limitations - History of Present Illness Initial Comments: The patient is here due to worsening of her chronic neck pain. She has a hx of similar pain on the L side and now for the last week she has had R posterior neck pain. There is no radiation down the R arm and any ROM of the head and neck worsens the pain. The patient also denies any arm or leg numbness, weakness, or any bowel or bladder issues. The patient does have an appointment with Dr. Hand in 2 days for evaluation of this pain. MD Complaint: Neck pain Onset/Timin -: Week(s) Place: Home Radiation: Right shoulder Severity scale (1-10): 9 Quality: Other Consistency: Constant Improves With: Cold therapy Worsens With: Movement of neck Associated Symptoms: None Treatments Prior to Arrival: None - Related Data Previous Rx's Medication Instructions Recorded Cyclobenzaprine HCl [Flexeril] 10 mg PO TID #15 tablet 10/31/18 Allergies Allergy/AdvReac Type Severity Reaction Status Date / Time oxycodone terephthalate AdvReac NAUSEA AND Verified 08/28/19 07:11 [From Percodan] VOMITING Travel Screening - Travel/Exposure Within Last 30 Days Have you traveled within the last 30 days?: No - Travel/Exposure Within Last Year Have you traveled outside the [place] in the last year?: No - Additonal Travel Details Have you been exposed to anyone with a communicable illness?: No - Travel Symptoms Symptom Screening: None Review of Systems Constitutional: Denies: Chills, Fever Eyes: Denies: Eye discharge ENT: Denies: Congestion Respiratory: Denies: Dyspnea Past Medical History - SOCIAL HISTORY Smoking Status: Current every day smoker Alcohol Use: None Drug Use: None - RESPIRATORY Hx Respiratory Disorders: Yes Hx Sleep Apnea: Yes Hx of CPAP: Yes - CARDIOVASCULAR Hx Cardio Disorders: Yes Hx Cardiac Cath: Yes (2005 and 2016) Hx Chest Pain: (none recent heart cath 3-17) Hx Hypertension: Yes (on meds good control) - NEURO Hx Neuro Disorders: Yes Hx Headaches: Yes - GI Hx GI Disorders: Yes Hx Reflux: Yes Hx Irritable Bowel: Yes Hx Ulcer: Yes Hx of Polyps: Yes - Hx Genitourinary Disorders: No - ENDOCRINE Hx Endocrine Disorders: No Comment:: Pt states on Thyroid med due to fatigue - MUSCULOSKELETAL Hx Musculoskeletal Disorders: Yes Hx Arthritis: Yes Hx Back Injury: Yes (1992-work injury) Comment:: previous neck injections - PSYCH Hx Psych Problems: No - HEMATOLOGY/ONCOLOGY Hx Hematology/Oncology Disorders: No Family Medical History Any Significant Family History?: Yes Hx Cancer: Father Hx Heart Disease: Father, Grandparents Physical Exam - General General Appearance: Alert, Oriented x3, Cooperative, No acute distress - Head Head exam: Atraumatic, Normocephalic, Normal inspection - Eye Eye exam: Normal appearance, PERRL - Neck Neck exam: Normal inspection, Full ROM, Tenderness (The pain is 100% reproducible to palpation over the R posterior inferior cervical area.) - Respiratory Respiratory exam: Normal lung sounds bilaterally. negative: Respiratory di stress - Cardiovascular Cardiovascular Exam: Regular rate, Normal rhythm, Normal heart sounds - GI/Abdominal GI/Abdominal exam: Soft, Normal bowel sounds. negative: Tenderness - Extremities Extremities exam: Normal inspection, Full ROM, Normal capillary refill. negative: Tenderness - Back Image of Body Front/Back: 1 - Area of pain and tenderness. - Neurological Neurological exam: Alert, Normal gait, Oriented X3, Reflexes normal (The upper extremity reflexes are 1+ and equal in all areas.). negative: Abnormal gait, Altered, Motor sensory deficit (The motor and sensory exam is 5/5 upper and lower extremities.) - Psychiatric Psychiatric exam: negative: Anxious Course Vital Signs 08/31/19 20:36 Temperature 98.1 F Pulse Rate [ 89 Pulse Ox Probe] Respiratory 20 Rate Blood Pressure 180/76 [Left Arm] Pulse Ox 100 - Reevaluation(s) Reevaluation #1: The patient is doing a lot better at this time. Her pain is much improved and we are just waiting on her xray report. 08/31/19 21:16 Reevaluation #2: The patient is doing a lot better at this time. Her pain is much improved and she is ready for home. I also did give her the xray report from today to bring to Dr. Hand. 08/31/19 21:42 Medical Decision Making - Data Complexity MDM Data: X-Ray Ordered and/or Reviewed - Radiology Data Radiology results: Report reviewed (Cspine: Mild facet arthropathy, O/W neg.) Disposition Disposition: Discharge Clinical Impression: Trapezius muscle spasm Disposition: Home, Self-Care Condition: (2) Stable Instructions: Cervical Sprain (ED) Additional Instructions: Please continue your home pain medicines and please see Dr. Hand in 2 days as planned. Return to the ER for any worsening pain, any arm or leg numbness, weakness, or any bowel or bladder issues. Forms: Patient Portal Access Time of Disposition: 21:41 Quality - Quality Measures Quality Measures: N/A - Blood Pressure Screening View Details: Yes Does Patient Have Any of the Following: Active Dx of HTN Blood Pressure Classification: Hypertensive Reading Systolic Measurement: 147 Diastolic Measurement: 74 Screening for High Blood Pressure: Patient Exclusion, Hx of HTN [G9744]
--- NOTE | 2019-08-31 21:37 | RADIOLOGY REPORT ---
EXAMINATION: CERVICAL SPINE AP LATERAL EXAM DATE: 08/31/2019 9:24 PM TECHNIQUE: 4 views of the cervical spine INDICATION: R posterior neck pain COMPARISON: None ENCOUNTER: Initial FINDINGS: Normal anatomic alignment. Vertebral body heights are preserved without evidence of acute fracture. No prevertebral soft tissue swelling. The predental space is normal and there is no offset of the C1 lateral masses. Limited visu alization of the dens due to superimposition of other structures. Intervertebral disc spaces are normal. Multilevel facet joint arthropathy. IMPRESSION: 1. Intervertebral disc heights are normal. 2. Multilevel facet joint arthropathy. 3. No evidence of acute fracture. Please note that in the setting of trauma, negative radiographs of the spine do not exclude fracture. If indicated, CT may be obtained for further evaluation. Dictated by: Bonifacio Clements MD on 08/31/2019 9:32 PM. .
== END 2019-08-31 21:47 | disposition home or self-care (01) ==
LOC: ER 20:29
DX: M62.838 Other muscle spasm (principal); M54.2 Cervicalgia; M25.511 Pain in right shoulder; I10 Essential (primary) hypertension; F17.210 Nicotine dependence, cigarettes, uncomplicated
CPT/HCPCS: 72040; 96372; 99284